=== PATIENT | female | born 1960 | race Caucasian/White ===

== ENCOUNTER → 2021-07-26 | Outpatient (CLI) | payer OTHER ==
--- NOTE | 2021-07-26 17:39 | KCIC ---
EXAMINATION: US PELVIS W/TV, 07/26/2021 2:19 PM CLINICAL INDICATION: Abnormal uterine bleeding TECHNIQUE: Grayscale, color and spectral Doppler ultrasound images of the pelvis via transabdominal a nd transvaginal approach. COMPARISON: None. FINDINGS: The uterus measures 9.2 x 6.5 x 7.1 cm. The endometrial stripe measures 1.4 mm in thickness. No myome trial mass. There are tiny cystic changes throughout the myometrium and endometrium. The right ovary measures 3.1 x 2.7 x 2.2 cm. The left ovary measures 1.4 x 1.6 x 2.0 cm. There is nor mal ovarian blood flow bilaterally. There is a 2.2 cm anechoic right ovarian cyst. No adnexal mass or free fluid. IMPRESSION: 1. The endometrial stripe measures 1.4 cm. If the patient is postmenopausal, this is abnormally thick ened and could reflect endometrial hyperplasia. 2. Tiny cystic changes throughout the endometrium and myometrium. This is of uncertain etiology and s ignificance but can be seen with hormone replacement therapy and adenomyosis. 3. 2.2 cm right ovarian cyst. Electronically signed by: Kim Rendon MD (07/26/2021 5:36 PM) [id number]
== END ==
LOC: KCIC US 14:05
PROVIDERS: ATTEND Obstetrics & Gynecology
DX: N83.291 Other ovarian cyst, right side (principal); N93.9 Abnormal uterine and vaginal bleeding, unspecified
CPT/HCPCS: 76830; 76856